=== PATIENT | female | born 1980 | race African-American/Black ===

== ENCOUNTER → 2017-02-24 | Day surgery (SDC) | payer OTHER ==
[~2017-02-24] VITALS: Ht 154.9 cm; Wt 80.7 kg
[~2017-02-24] MED LIST: TESSALON PERLE100 MG PO; ZOFRAN ODT4 MG SL
--- NOTE | 2017-03-01 19:33 | Operative Report ---
Operative/Inv Procedure Report Surgery Date: 02/24/17 Name of Procedure: Laparoscopy aspiration of left ovarian cyst and ablation of cyst wall Pre-Operative Diagnosis: Pelvic mass Post-Operative Diagnosis: Same Estimated Blood Loss: scant Surgeon/Beach Expert: EDGAR MEHTA,CORNELIA Esteban Anesthesia: general endotracheal tube Operative/Procedure Note Note: Procedure note patient was taken the operating room placed on position after adequate anesthesia patient placed in dorsolithotomy position the vagina prepped draped fashion bladder was catheterized examination anesthesia performed patient tolerated that well on at this point CO2 tenaculum placed on the Intralipid cervix gentle downward traction Villa was left in cervix surgeon regowned and gloved the abdominal part of the case at the level of the umbilicus stab incision was made in the umbilicus through that a Veress needle was placed negative drop test was noted patient's abdomen was insufflated possibly fully Z CO2 to liver edge dullness which point the Veress needle was removed a 10 mm trocar was inserted atraumatically at the umbilicus sheath remained placed through that sheath laparoscope placed under direct visualization a 5 mm port was placed to bring minutes of symptoms pubis in midline a stab incision was made using a needle ovary cyst fluid that was serous was removed possibly 110 mL sent to pathology the cyst wall was ablated using Kleppinger also placed supine on the port hemostasis was apparent pictures were taken maximal CO2 was removed from the abdomen at this point odd the on incisions were reapproximated the umbilicus using 0 the skin incisions reapproximated using 30 Marcaine was injected underneath the skin sterile dressings were applied I would bacitracin I the Villa cannula was moved from the vagina the on on since removed from the vagina the patient was returned spine position she was awakened extubated awakened from anesthesia and transferred recovery room awake alert with counts correct Findings: Slightly enlarged uterus normal right ovary and tube a 10 cm cyst arising from the left ovary normal left to otherwise normal anatomy
== END ==
LOC: STS 03:10
DX: N83.202 Unspecified ovarian cyst, left side (principal); N85.2 Hypertrophy of uterus; R19.09 Other intra-abdominal and pelvic swelling, mass and lump
CPT/HCPCS: 81025; 88305; C9399; J0131; J0694; J2250